=== PATIENT | female | born 1960 ===

== ENCOUNTER 2017-05-07 10:48 | Emergency (ER) | payer MEDICAID ==
[2017-05-07 10:48] VITALS: BMI 38.7
[2017-05-07 11:00] VITALS: RESP 18; TEMP 98.5
[2017-05-07] MEDS ORDERED: Sodium Chloride 0.9% 1,000 ML IV STA (11:22)
[2017-05-07 11:30] LABS: BASO # 0.02 K/mm3 (0.0-2.0); BASO % 0.2 % (0.0-3.0); EOS # 0.5 (0.0-0.7); EOS % 4.7 % (1.5-5.0); GRAN # 6.89 (1.4-6.5); GRAN % 69.6 % (50.0-68.0); HEMATOCRIT 44.8 % (36.0-48.0); LYMPH # 1.9 (1.2-3.4); LYMPH % 19.5 % (22.0-35.0); MEAN CELL VOLUME 94.1 fl (80.0-105.0); MEAN CORPUSCULAR HEMOGLOBIN 30.5 pg (25.0-35.0); MEAN CORPUSCULAR HGB CONC 32.4 g/dl (31.0-37.0); MEAN PLATELET VOLUME 10.9 fl (7.0-11.0); MONO # 0.6 (0.1-0.6); RED CELL DISTRIBUTION WIDTH 13.8 % (11.5-14.5); WHITE BLOOD COUNT 9.9 10^3/ul (4.5-11.0)
--- NOTE | 2017-05-07 11:44 | ED PDOC ---
Arrival/HPI - General Chief Complaint: GI Problem Time Seen by Provider: 05/07/17 11:15 Historian: Patient - History of Present Illness Narrative History of Present Illness (Text): 05/07/17 11:44 A 56 year old female, whose past medical history includes diabetes, hyperlipidemia, GERD and hemorrhoids, presents to the emergency department complaining of mostly non-bloody non-mucoid diarrhea for the past 4 days. Patient also notes accompanied abdominal discomfort, which she describes as a cramping sensation. Patient denied any hematochezia until this morning when she noted bright red blood while wiping her rectum. Patient denies any fever, chills , nausea, vomiting, melena or any other complaints. Patient denies any sick contact, recent travel nor antibiotic use. Time/Duration: Other (4 days) Symptom Course: Unchanged Quality: Other Context: Home Past Medical History - Provider Review Nursing Documentation Reviewed: Yes - Infectious Disease Hx of Infectious Diseases: None - Tetanus Immunization Tetanus Immunization: Unknown - Reproductive Menopause: Yes - Cardiac Hx Cardiac Disorders: Yes Hx Hypertension: Yes - Pulmonary Hx Respiratory Disorders: Yes Hx Asthma: Yes - Neurological Hx Neurological Disorder: No - HEENT Hx HEENT Disorder: No - Renal Hx Renal Disorder: No - Endocrine/Metabolic Hx Endocrine Disorders: Yes Hx Diabetes Mellitus Type 2: Yes - Hematological/Oncological Hx Blood Disorders: No - Integumentary Hx Dermatological Disorder: No - Musculoskeletal/Rheumatological Hx Falls: No - Gastrointestinal Hx Gastrointestinal Disorders: Yes Hx Gastroesophageal Reflux: Yes - Genitourinary/Gynecological Hx Genitourinary Disorders: No - Psychiatric Hx Psychophysiologic Disorder: No Hx Substance Use: No - Surgical History Hx Section: Yes Hx Tubal Ligation: Yes - Anesthesia Hx Anesthesia: Yes Hx Anesthesia Reactions: No Hx Malignant Hyperthermia: No - Suicidal Assessment Feels Threatened In Home Enviroment: No Family/Social History - Physician Review Nursing Documentation Reviewed: Yes Family/Social History: Unknown Family HX Smoking Status: Former Smoker Hx Alcohol Use: Yes Frequency of alcohol use: Socially Hx Substance Use: No Hx Substance Use Treatment: No Allergies/Home Meds Allergies/Adverse Reactions: Allergies aspirin Allergy (Verified 05/07/17 11:00) ITCHING Penicillins Allergy (Verified 05/07/17 11:00) ITCHING Home Medications: Home Meds Medication Instructions Recorded Confirmed Atorvastatin [Lipitor] 40 mg PO DIN 05/08/16 05/07/17 Exenatide Microspheres [Bydureon] 2 mg SC QWK 05/08/16 05/07/17 Glimepiride [Amaryl] 4 mg PO DAILY 05/08/16 05/07/17 MetFORMIN [glucoPHAGE] 1,000 mg PO BID 05/08/16 05/07/17 Metoprolol Tartrate [Lopressor] 25 mg PO DAILY 05/08/16 05/07/17 Nitroglycerin [Nitrostat] 0.4 mg SL Q5MIN PRN 05/08/16 05/07/17 Omeprazole 40 mg PO DAILY 05/08/16 05/07/17 Salmeterol Xinafoate/Fluticaso 1 puff IH DAILY 05/08/16 05/07/17 [Advair Hfa 115/21] Enalapril Maleate [Vasotec] 2.5 mg PO DAILY 05/07/17 05/07/17 Review of Systems - Physician Review All systems were reviewed & negative as marked: Yes - Review of Systems Constitutional: absent: Fevers, Night Sweats Gastrointestinal: Abdominal Pain, Diarrhea, Hematochezia. absent: Nausea, Vomiting, Other (melena) Physical Exam Vital Signs Reviewed: Yes Vital Signs Temp Pulse Resp BP Pulse Ox 05/07/17 14:07 82 18 128/78 96 05/07/17 10:52 98.5 F 86 18 96/61 L 94 L Temperature: Afebrile Blood Pressure: Hypotensive Pulse: Regular Respiratory Rate: Normal Appearance: Positive for: Non-Toxic, Comfortable, Other (Obese female) Pain Distress: None Mental Status: Positive for: Alert and Oriented X 3 - Systems Exam Head: Present: Atraumatic, Normocephalic Pupils: Present: PERRL Extroacular Muscles: Present: EOMI Conjunctiva: Present: Normal Mouth: Present: Moist Mucous Membranes Neck: Present: Normal Range of Motion Respiratory/Chest: Present: Clear to Auscultation, Good Air Exchange. No: Respiratory Distress, Accessory Muscle Use Cardiovascular: Present: Regular Rate and Rhythm, Normal S1, S2. No: Murmurs Abdomen: Present: Distention (slightly distented abdomen), Normal Bowel Sounds. No: Tenderness, Peritoneal Signs Back: Present: Normal Inspection Upper Extremity: Present: Normal Inspection. No: Cyanosis, Edema Lower Extremity: Present: Normal Inspection. No: Edema Neurological: Present: GCS=15, CN II-XII Intact, Speech Normal Skin: Present: Warm, Dry, Normal Color. No: Rashes Psychiatric: Present: Alert, Oriented x 3, Normal Insight, Normal Concentration Medical Decision Making ED Course and Treatment: 05/07/17 11:44 Impression: A 56 year old female with diarrhea and abdominal cramping. Patient notes hemtochezia this morning. Plan: -- Labs -- Urinalysis -- Stool culture -- Pepcid and IV fluids -- Reassess and disposition Progress Notes: - Lab Interpretations Lab Results: 05/07/17 11:20 05/07/17 11:20 Lab Results 05/07/17 11:35: Urine Color Yellow, Urine Appearance Clear, Urine pH 6.0, Ur Specific [place] >= 1.030, Urine Protein 100 H, Urine Glucose (UA) Negative, Urine Ketones Trace H, Urine Blood Negative, Urine Nitrate Negative, Urine Bilirubin Negative, Urine Urobilinogen 1.0 H, Ur Leukocyte Esterase Negative, Urine RBC 0 - 2, Urine WBC 1 - 3, Ur Epithelial Cells 6 - 8, Urine Bacteria Many , Coarse Granular Casts Trace H, Urine Other Fiber, Urine HCG, Qual Negative 05/07/17 11:20: Sodium 140, Potassium 3.8, Chloride 106, Carbon Dioxide 21, Anion Gap 16, BUN 14, Creatinine 0.6 L, Est GFR ( Amer) > 60, Est GFR ( Non-Af Amer) > 60, Random Glucose 199 H, Calcium 9.9, Total Bilirubin 0.9, AST 44 H, ALT 60 H, Alkaline Phosphatase 152 H, Total Protein 8.0, Albumin 4.5, Globulin 3.5, Albumin/Globulin Ratio 1.3, Lipase 83 05/07/17 11:20: PT 11.8, INR 1.07, APTT 30.0 05/07/17 11:20: WBC 9.9 D, RBC 4.76, Hgb 14.5, Hct 44.8, MCV 94.1, MCH 30.5, MCHC 32.4, RDW 13.8, Plt Count 257, MPV 10.9, Gran % 69.6 H, Lymph % (Auto) 19.5 L, Ness % (Auto) 6.0, Eos % (Auto) 4.7, Baso % (Auto) 0.2, Gran # 6.89 H, Lymph # 1.9, Ness # 0.6, Eos # 0.5, Baso # 0.02 I have reviewed the lab results: Yes - Medication Orders Current Medication Orders: Discontinued Medications Famotidine (Pepcid) 20 mg IVP STAT STA Stop: 05/07/17 11:23 Last Admin: 05/07/17 11:41 Dose: 20 mg IVP Administration Document 05/07/17 11:41 SE (Rec: 05/07/17 11:41 SE [id number]) Charges for Administration # of IVP Administrations 1 Sodium Chloride (Sodium Chloride 0.9%) 1,000 mls @ 1,000 mls/hr IV .Q1H STA Stop: 05/07/17 12:21 Last Admin: 05/07/17 11:41 Dose: 1,000 mls/hr eMAR Start Stop Document 05/07/17 11:41 SE (Rec: 05/07/17 11:41 SE [id number]) Intravenous Solution Start Date 05/07/17 Start Time 11:41 - Scribe Statement The provider has reviewed the documentation as recorded by the Loly Cesar Provider Scribe Attestation: All medical record entries made by the Scribe were at my direction and personally dictated by me. I have reviewed the chart and agree that the record accurately reflects my personal performance of the history, physical exam, medical decision making, and the department course for this patient. I have also personally directed, reviewed, and agree with the discharge instructions and disposition. Disposition/Present on Arrival - Present on Arrival Any Indicators Present on Arrival: No History of DVT/PE: No History of Uncontrolled Diabetes: No Urinary Catheter: No History of Decub. Ulcer: No History Surgical Site Infection Following: None - Disposition Have Diagnosis and Disposition been Completed?: Yes Diagnosis: Diarrhea, Dehydration Disposition: HOME/ ROUTINE Disposition Time: 15:18 Patient Plan: Discharge Patient Problems: Current Active Problems Problem Status Onset Dehydration Acute Diarrhea Acute Condition: GOOD Discharge Instructions (ExitCare): Dehydration (DC), Gastroenteritis (GEN), Rotavirus Infection (DC) Additional Instructions: drink plenty of water., Prescriptions: Psyllium Husk [Evac] 340 gm PO BID PRN 7 Days powder PRN Reason: Diarrhea Forms: [employer] (Yi)
[2017-05-07 11:46] LABS: INR 1.07 (0.93-1.08)
[2017-05-07 11:51] LABS: URINE BILIRUBIN NEGATIVE (NEGATIVE); URINE BLOOD NEGATIVE (NEGATIVE); URINE GLUCOSE (UA) NEGATIVE (NEGATIVE); URINE KETONE TRACE mg/dL (NEGATIVE); URINE LEUKOCYTE ESTERASE NEGATIVE Leu/uL (NEGATIVE); URINE PROTEIN 100 mg/dL (<30 mg/dL)
[2017-05-07 11:52] LABS: URINE APPEARANCE CLEAR (CLEAR); URINE COLOR YELLOW (YELLOW)
[2017-05-07 11:58] LABS: URINE BACTERIA MANY (NEG); URINE RBC 0 - 2 /hpf (0-2)
[2017-05-07 12:01] LABS: ALB/GLOB RATIO 1.3 (1.1-1.8); ALKALINE PHOSPHATASE 152 U/L (38-126); ALT/SGPT 60 U/L (7-56); AST/SGOT 44 U/L (14-36); BILIRUBIN,TOTAL 0.9 mg/dL (0.2-1.3); BLOOD UREA NITROGEN 14 mg/dL (7-21); CALCIUM 9.9 mg/dL (8.4-10.5); CARBON DIOXIDE 21 mmol/L (21-33); CHLORIDE 106 mmol/L (98-107); GFR AFRICAN-AMERICAN > 60; GLUCOSE,RANDOM 199 mg/dL (70-110); POTASSIUM 3.8 mmol/L (3.6-5.0); SODIUM 140 mmol/L (132-148)
[2017-05-07 14:08] VITALS: BP 128/78; PULSE 82; O2SAT 96
[2017-05-07 14:25] LABS: LIPASE 83 U/L (23-300)
== END 2017-05-07 15:48 | disposition home or self-care (01) ==
LOC: ED 10:48
DX: E86.0 Dehydration (principal); R19.7 Diarrhea, unspecified; E11.9 Type 2 diabetes mellitus without complications; Z79.84 Long term (current) use of oral hypoglycemic drugs; E78.5 Hyperlipidemia, unspecified; I10 Essential (primary) hypertension; Z87.891 Personal history of nicotine dependence; Z88.0 Allergy status to penicillin
CPT/HCPCS: 80053; 81001; 83690; 84703; 85025; 85610; 85730; 96374; 99284; J7040

== ENCOUNTER 2017-05-19 20:44 | Emergency (ER) | payer MEDICAID ==
[2017-05-19 20:56] VITALS: BP 143/95; PULSE 90; RESP 18; TEMP 98; O2SAT 96
[2017-05-19 20:59] VITALS: BMI 39.2
--- NOTE | 2017-05-19 21:20 | ED PDOC ---
Arrival/HPI - General Chief Complaint: Allergic Reaction Time Seen by Provider: 05/19/17 21:02 Historian: Patient - History of Present Illness Narrative History of Present Illness (Text): 05/19/17 22:39 56 yo F reports acute onset of itchy red rash to her buttock, thighs and face, which started at 6 PM today after eating dinner which was homemade and she has had in the past with no reaction. Reports not taking any medications prior to arrival for her symptoms. Otherwise patient reports (-) throat swelling, (-) tongue / lip swelling, (-) dyspnea, (-) cough, (-) wheezing, (-) abdominal pain , (-) nausea (-) vomiting. There has been no exposure to known allergens. The patient has no history of allergic reactions. PMD Juan Jose Past Medical History - Provider Review Nursing Documentation Reviewed: Yes - Infectious Disease Hx of Infectious Diseases: None - Tetanus Immunization Tetanus Immunization: Unknown - Reproductive Currently : No - Cardiac Hx Cardiac Disorders: Yes Hx Hypertension: Yes - Pulmonary Hx Respiratory Disorders: Yes Hx Asthma: Yes - Neurological Hx Neurological Disorder: No - HEENT Hx HEENT Disorder: No - Renal Hx Renal Disorder: No - Endocrine/Metabolic Hx Endocrine Disorders: Yes Hx Diabetes Mellitus Type 2: Yes - Hematological/Oncological Hx Blood Disorders: No - Integumentary Hx Dermatological Disorder: No - Musculoskeletal/Rheumatological Hx Musculoskeletal Disorders: No Hx Falls: No - Gastrointestinal Hx Gastrointestinal Disorders: Yes Hx Gastroesophageal Reflux: Yes - Genitourinary/Gynecological Hx Genitourinary Disorders: No - Psychiatric Hx Psychophysiologic Disorder: No Hx Substance Use: No - Surgical History Hx Section: Yes Hx Tubal Ligation: Yes - Anesthesia Hx Anesthesia: Yes Hx Anesthesia Reactions: No Hx Malignant Hyperthermia: No - Suicidal Assessment Feels Threatened In Home Enviroment: No Family/Social History - Physician Review Nursing Documentation Reviewed: Yes Family/Social History: Unknown Family HX Smoking Status: Former Smoker Hx Alcohol Use: Yes Frequency of alcohol use: Socially Hx Substance Use: No Hx Substance Use Treatment: No Allergies/Home Meds Allergies/Adverse Reactions: Allergies aspirin Allergy (Verified 05/07/17 11:00) ITCHING Penicillins Allergy (Verified 05/07/17 11:00) ITCHING Home Medications: Home Meds Medication Instructions Recorded Confirmed Atorvastatin [Lipitor] 40 mg PO DIN 05/08/16 05/07/17 Exenatide Microspheres [Bydureon] 2 mg SC QWK 05/08/16 05/07/17 Glimepiride [Amaryl] 4 mg PO DAILY 05/08/16 05/07/17 MetFORMIN [glucoPHAGE] 1,000 mg PO BID 05/08/16 05/07/17 Metoprolol Tartrate [Lopressor] 25 mg PO DAILY 05/08/16 05/07/17 Nitroglycerin [Nitrostat] 0.4 mg SL Q5MIN PRN 05/08/16 05/07/17 Omeprazole 40 mg PO DAILY 05/08/16 05/07/17 Salmeterol Xinafoate/Fluticaso 1 puff IH DAILY 05/08/16 05/07/17 [Advair Hfa 115/21] Enalapril Maleate [Vasotec] 2.5 mg PO DAILY 05/07/17 05/07/17 Review of Systems - Review of Systems Constitutional: absent: Fatigue, Weight Change, Fevers ENT: absent: Sore Throat, Rhinorrhea, Sinus Congestion Respiratory: absent: SOB, Cough, Sputum Cardiovascular: absent: Chest Pain, Palpitations, Edema Musculoskeletal: absent: Arthralgias, Back Pain, Neck Pain Skin: Rash. absent: Pruritis, Skin Lesions Physical Exam - Physical Exam Narrative Physical Exam (Text): 05/19/17 22:42 GENERAL APPEARANCE: Patient is awake, alert, oriented x 3, in no acute distress. SKIN: (+) erythematous urticarial rash to the face, buttock and b/l thighs, (- ) other lesions. Otherwise (-) excoriations, (-) drainage, (-) crusting of lesions is present. HENT: (-) conjunctival injection, (-) chemosis. Oropharynx: clear (-) tongue or lip swelling, (-) tonsillar exudates, (-) erythema. Airway: patent (-) stridor, (-) hoarseness. Mucous membranes moist. Nares: Patent (-) rhinorrhea. NECK: (-) lymphadenopathy, (-) tenderness. CARDIOVASCULAR: Normal rate and rhythm. (-) murmur, (-) gallop. CHEST: (-) rales, (-) wheezing, (-) dyspnea, (-) stridor. Breath sounds equal bilaterally. ABDOMEN: Soft. (-) tenderness, (-) distention, (-) HSM. NEURO: Mental status: Patient is alert, oriented, and with normal strength and tone. Vital Signs Temp Pulse Resp BP Pulse Ox 05/19/17 20:55 98.0 F 90 18 143/95 H 96 Medical Decision Making ED Course and Treatment: 05/19/17 22:40 56 yo F reports acute onset of itchy red rash to her buttock, thighs and face, which started at 6 PM today after eating dinner which was homemade and she has had in the past with no reaction. Plan : - Benadryl 50 mg PO - Prednisone 60 mg PO - Pepcid 40 mg PO On reevaluation, patient is laying in bed comfortably in no acute distress. Breathing is easy and unlabored. Patient has no additional complaints at this time. Reports no shortness of breath or facial swelling. On exam, there is noted improvement of the red rash on patient's face, buttock and thighs. Diagnosis of allergic reaction discussed with the patient. Patient instructed to follow up with primary care physician in 1-2 days without fail. Advised to take medication as prescribed. Return to the emergency room at any time for any new or worsening symptoms. Patient states she fully agrees with and understands discharge instructions. States that she agrees with the plan and disposition. Verbalized and repeated discharge instructions and plan. I have given the patient opportunity to ask any additional questions. - Medication Orders Current Medication Orders: Discontinued Medications Diphenhydramine HCl (Benadryl) 50 mg PO STAT STA Stop: 05/19/17 21:20 Last Admin: 05/19/17 21:27 Dose: 50 mg Famotidine (Pepcid) 40 mg PO STAT STA Stop: 05/19/17 21:20 Last Admin: 05/19/17 21:27 Dose: 40 mg Prednisone (Prednisone Tab) 60 mg PO STAT STA Stop: 05/19/17 21:20 Last Admin: 05/19/17 21:27 Dose: 60 mg - PA / HALF BACKER / Resident Statement / has reviewed & agrees with the documentation as recorded. Disposition/Present on Arrival - Present on Arrival Any Indicators Present on Arrival: No History of DVT/PE: No History of Uncontrolled Diabetes: No Urinary Catheter: No History of Decub. Ulcer: No History Surgical Site Infection Following: None - Disposition Have Diagnosis and Disposition been Completed?: Yes Diagnosis: Allergic reaction Disposition: HOME/ ROUTINE Disposition Time: 22:12 Patient Plan: Discharge Patient Problems: Current Active Problems Problem Status Onset Allergic reaction Acute Condition: STABLE Discharge Instructions (ExitCare): General Allergic Reaction (ED) Print Language: BAHAMIAN Additional Instructions: Thank you for letting us take care of you today. You were treated for allergic reaction. The emergency medical care you received today was directed at your acute symptoms. If you were prescribed any medication, please fill it and take as directed. It may take several days for your symptoms to resolve. Return to the Emergency Department if your symptoms worsen, do not improve, or if you have any other problems. Please contact your doctor in 2 days for re-evaluation and follow up / or call one of the physicians/clinics you have been referred to that are listed on the Patient Visit Information form that is included in your discharge packet. Bring any paperwork you were given at discharge with you along with any medications you are taking to your follow up visit. Our treatment cannot replace ongoing medical care by a primary care provider (PCP) outside of the emergency department. Thank you for allowing the [facility] team to be part of your care today. Prescriptions: Cetirizine HCl [Zyrtec] 10 mg PO DAILY #30 capsule Famotidine [Pepcid] 40 mg PO DAILY #20 tablet predniSONE [predniSONE Tab] 40 mg PO DAILY #8 tab Referrals: Elaine Ingram DO [Primary Care Provider] - Follow up with primary Forms: [employer] ([place]ian), WORK NOTE
== END 2017-05-19 22:23 | disposition home or self-care (01) ==
LOC: ED 20:44
DX: T78.40XA Allergy, unspecified, initial encounter (principal); X58.XXXA Exposure to other specified factors, initial encounter; E11.9 Type 2 diabetes mellitus without complications; I10 Essential (primary) hypertension; Z87.891 Personal history of nicotine dependence; Z79.84 Long term (current) use of oral hypoglycemic drugs; Z88.0 Allergy status to penicillin

== ENCOUNTER 2018-09-16 19:27 | Observation (INO) | payer MEDICAID ==
[2018-09-16 19:32] VITALS: BMI 26.1
[2018-09-16] MEDS ORDERED: Albuterol-Ipratrop 3 mg / 0.5 (3 ml) UD ONE (19:38)
[2018-09-16 20:16] LABS: BASO # 0.02 K/mm3 (0.0-2.0); BASO % 0.3 % (0.0-3.0); EOS # 0.1 (0.0-0.7); EOS % 1.3 % (1.5-5.0); HEMOGLOBIN 13.8 g/dL (12.0-16.0); LYMPH % 43.7 % (22.0-35.0); MEAN CELL VOLUME 94.6 fl (80.0-105.0); MEAN CORPUSCULAR HEMOGLOBIN 30.9 pg (25.0-35.0); MEAN CORPUSCULAR HGB CONC 32.7 g/dl (31.0-37.0); MEAN PLATELET VOLUME 10.7 fl (7.0-11.0); MONO # 0.5 (0.1-0.6); MONO % 7.1 % (1.0-6.0); RBC 4.46 10^6/uL (3.5-6.1); RED CELL DISTRIBUTION WIDTH 12.8 % (11.5-14.5); WHITE BLOOD COUNT 6.8 10^3/uL (4.5-11.0)
[2018-09-16 20:23] LABS: ALB/GLOB RATIO 1.3 (1.1-1.8); ALBUMIN 4.2 g/dL (3.0-4.8); ALT/SGPT 33 U/L (7-56); AST/SGOT 33 U/L (14-36); BLOOD UREA NITROGEN 15 mg/dL (7-21); CALCIUM 9.5 mg/dL (8.4-10.5); GFR NON-AFRICAN AMERICAN > 60; LIPASE 78 U/L (23-300)
[2018-09-16 20:35] LABS: B-TYPE NATRIURETIC PEPTIDE 100 pg/mL (0-450); TROPONIN I < 0.01 ng/mL
[2018-09-16 20:38] LABS: URINE BILIRUBIN NEGATIVE (NEGATIVE); URINE BLOOD NEGATIVE (NEGATIVE); URINE GLUCOSE (UA) NEGATIVE (NEGATIVE); URINE LEUKOCYTE ESTERASE NEGATIVE Leu/uL (NEGATIVE); URINE PROTEIN NEGATIVE mg/dL (<30 mg/dL); URINE UROBILINOGEN 0.2 E.U./dL (<1 E.U./dL)
[2018-09-16 20:40] LABS: URINE APPEARANCE CLEAR (CLEAR); URINE COLOR YELLOW (YELLOW)
--- NOTE | 2018-09-16 22:32 | ED PDOC ---
Arrival/HPI - General Chief Complaint: Shortness Of Breath Time Seen by Provider: 09/16/18 19:44 Historian: Patient - History of Present Illness Narrative History of Present Illness (Text): 09/16/18 22:34 57yr old female with hx of DM/HTN and asthma presents today with chest tightness, upper back pain. pt states symptoms started at 2pm. pt states she took a muscle relaxer at work. pt is c/o SOB. pt denies fever/chills. pt states she has hx of asthma but symptoms are not her normal asthma symptoms. pt is describing a pressure sensation in the chest with a sharp upper back pain with deep inspiration. no abdominal pain. no n/vd//c. no cough. no recent travel. no calf pain. no other complaints. PMD:Dr. Ingram Past Medical History - Provider Review Nursing Documentation Reviewed: Yes - Travel History Have you recently traveled outside [place] w/in the past 3 mons?: No - Infectious Disease Hx of Infectious Diseases: None - Tetanus Immunization Tetanus Immunization: Unknown - Cardiac Hx Cardiac Disorders: Yes Hx Hypertension: Yes - Pulmonary Hx Respiratory Disorders: Yes Hx Asthma: Yes - Neurological Hx Neurological Disorder: No - HEENT Hx HEENT Disorder: No - Renal Hx Renal Disorder: No - Endocrine/Metabolic Hx Endocrine Disorders: Yes Hx Diabetes Mellitus Type 2: Yes - Hematological/Oncological Hx Blood Disorders: No - Integumentary Hx Dermatological Disorder: No - Musculoskeletal/Rheumatological Hx Musculoskeletal Disorders: No Hx Falls: No - Gastrointestinal Hx Gastrointestinal Disorders: Yes Hx Gastroesophageal Reflux: Yes - Genitourinary/Gynecological Hx Genitourinary Disorders: No - Psychiatric Hx Psychophysiologic Disorder: No Hx Substance Use: No - Surgical History Hx Section: Yes Hx Tubal Ligation: Yes - Anesthesia Hx Anesthesia: Yes Hx Anesthesia Reactions: No Hx Malignant Hyperthermia: No - Suicidal Assessment Feels Threatened In Home Enviroment: No Family/Social History - Physician Review Nursing Documentation Reviewed: Yes Family/Social History: Unknown Family HX Smoking Status: hookah Hx Alcohol Use: Yes Frequency of alcohol use: Socially Hx Substance Use: No Hx Substance Use Treatment: No Allergies/Home Meds Allergies/Adverse Reactions: Allergies aspirin Allergy (Verified 09/16/18 19:32) ITCHING Penicillins Allergy (Verified 09/16/18 19:32) ITCHING Home Medications: Home Meds Medication Instructions Recorded Confirmed Atorvastatin [Lipitor] 40 mg PO DIN 05/08/16 05/07/17 Exenatide Microspheres [Bydureon] 2 mg SC QWK 05/08/16 05/07/17 Glimepiride [Amaryl] 4 mg PO DAILY 05/08/16 05/07/17 MetFORMIN [glucoPHAGE] 1,000 mg PO BID 05/08/16 05/07/17 Metoprolol Tartrate [Lopressor] 25 mg PO DAILY 05/08/16 05/07/17 Nitroglycerin [Nitrostat] 0.4 mg SL Q5MIN PRN 05/08/16 05/07/17 Omeprazole 40 mg PO DAILY 05/08/16 05/07/17 Salmeterol Xinafoate/Fluticaso 1 puff IH DAILY 05/08/16 05/07/17 [Advair Hfa 115/21] Enalapril Maleate [Vasotec] 2.5 mg PO DAILY 05/07/17 05/07/17 Nabumetone [Relafen] 1 tab PO DAILY 09/16/18 09/16/18 Review of Systems - Review of Systems Constitutional: absent: Fatigue, Fevers Respiratory: absent: SOB, Cough Cardiovascular: Chest Pain. absent: Palpitations Gastrointestinal: absent: Abdominal Pain, Nausea, Vomiting Genitourinary Female: absent: Dysuria, Frequency, Hematuria Musculoskeletal: Back Pain. absent: Arthralgias, Neck Pain Skin: absent: Rash, Pruritis Neurological: absent: Headache, Dizziness Psychiatric: absent: Anxiety, Depression Physical Exam Vital Signs Reviewed: Yes Vital Signs Temp Pulse Resp BP Pulse Ox 09/16/18 21:08 97.6 F 61 19 119/75 100 09/16/18 19:32 97.6 F 57 L 22 142/81 100 Temperature: Afebrile Blood Pressure: Normal Pulse: Regular Respiratory Rate: Normal Appearance: Positive for: Well-Appearing, Non-Toxic, Comfortable Pain Distress: None Mental Status: Positive for: Alert and Oriented X 3 - Systems Exam Head: Present: Atraumatic Mouth: Present: Moist Mucous Membranes Neck: Present: Normal Range of Motion Respiratory/Chest: Present: Clear to Auscultation, Good Air Exchange. No: Respiratory Distress, Accessory Muscle Use Cardiovascular: Present: Regular Rate and Rhythm, Normal S1, S2. No: Murmurs Abdomen: No: Tenderness, Distention, Rebound, Guarding Upper Extremity: Present: Normal ROM Lower Extremity: Present: Normal Inspection. No: Edema Neurological: Present: GCS=15, Speech Normal Skin: Present: Warm, Dry, Normal Color. No: Rashes Psychiatric: Present: Alert, Oriented x 3 Medical Decision Making ED Course and Treatment: 09/17/18 00:07 Pt with chest pain ; vitals stable cbc; within normal limits cmp; within normal limits trop: Within normal limits D-dimer within normal limits BMP within normal limits ekg; normal sinus rhythm at 62 bpm right bundle branch block no ST elevations QTC 472 cxr: No infiltrate no effusion no cardiomegaly Tylenol given p.o. Patient was not given aspirin as she has an allergy to aspirin. pt reassessment; resting comfortably in the ER case discussed with Dr. Martin; accepts tele obs admission. will Admit observational status to Tele for chest pain r/o acs. impression; chest pain Admit observational status to tele; - Lab Interpretations Lab Results: D-Dimer, Quantitative < 200 ng/mlDDU (0-243) 09/16/18 20:03 Troponin I < 0.01 ng/mL 09/16/18 20:03 NT-Pro-B Natriuret Pep 100 pg/mL (0-450) 09/16/18 20:03 Total Bilirubin 0.5 mg/dL (0.2-1.3) 09/16/18 20:03 AST 33 U/L (14-36) 09/16/18 20:03 ALT 33 U/L (7-56) 09/16/18 20:03 Alkaline Phosphatase 95 U/L (38-126) 09/16/18 20:03 Total Protein 7.4 g/dL (5.8-8.3) 09/16/18 20:03 Albumin 4.2 g/dL (3.0-4.8) 09/16/18 20:03 Globulin 3.2 gm/dL 09/16/18 20:03 Albumin/Globulin Ratio 1.3 (1.1-1.8) 09/16/18 20:03 Lipase 78 U/L (23-300) 09/16/18 20:03 Urine Color Yellow (YELLOW) 09/16/18 20:32 Urine Appearance Clear (CLEAR) 09/16/18 20:32 Urine pH 6.0 (4.7-8.0) 09/16/18 20:32 Ur Specific [place] >= 1.030 (1.005-1.035) 09/16/18 20:32 Urine Protein Negative mg/dL (<30 mg/dL) 09/16/18 20:32 Urine Glucose (UA) Negative mg/dL (NEGATIVE) 09/16/18 20:32 Urine Ketones Trace mg/dL (NEGATIVE) H 09/16/18 20:32 Urine Blood Negative (NEGATIVE) 09/16/18 20:32 Urine Nitrate Negative (NEGATIVE) 09/16/18 20:32 Urine Bilirubin Negative (NEGATIVE) 09/16/18 20:32 Urine Urobilinogen 0.2 E.U./dL (<1 E.U./dL) 09/16/18 20:32 Ur Leukocyte Esterase Negative Merari/uL (NEGATIVE) 09/16/18 20:32 - RAD Interpretation Radiology Orders: 09/16/18 19:55 CHEST PORTABLE [RAD] Stat Disposition/Present on Arrival - Present on Arrival Any Indicators Present on Arrival: No History of DVT/PE: No History of Uncontrolled Diabetes: No Urinary Catheter: No History of Decub. Ulcer: No History Surgical Site Infection Following: None - Disposition Have Diagnosis and Disposition been Completed?: Yes Diagnosis: Chest pain Disposition: HOSPITALIZED Disposition Time: 22:49 Patient Plan: Observation Patient Problems: Current Active Problems Problem Status Onset Chest pain Acute Condition: FAIR
--- NOTE | 2018-09-16 22:47 | CP.PCM.HP ---
<SanketRegino - Last Filed: 09/16/18 23:38> History of Present Illness - History of Present Illness History of Present Illness: PGY-1 History and Physical [address] Arriola Patient is a 57 year old female with past medical history of HTN, HLD, asthma presenting to ED for acute onset chest pain that began earlier this afternoon at 2PM. Patient states she was in her kitchen making coffee when it occurred suddenly. She described it as a pressure like sensation localized to the midsternal area with no radiation across the chest, down either extremity, or up the neck. She also endorses associated L upper back pain. She was taken to the ED by her and states the pain resolved after receiving tylenol and a duoneb treatment in the ED. She has never had pain like this before. No fevers/chills, dizziness, changes in vision, palpitations, sob, cough, abdominal pain, n/v/d/c, dysuria, or changes in stool. 12 pt ROS reviewed and otherwise negative. PMHx: HTN, HLD, asthma PSHx: tubal ligation, (1995), bariatric surgery Allergies: ASA, PCN--hives Home Meds: reviewed Social Hx: hx tobacco use--~1/2 ppd from 14 years old to age 42s, smokes hookah occasionally; social drinker, denies illicit drug use Family Hx: Brother--"open heart surgery" PMD: Dr. Ingram Present on Admission - Present on Admission Any Indicators Present on Admission: No Review of Systems - Review of Systems All systems: reviewed and no additional remarkable complaints except Review of Systems: as per HPI Past Patient History - Infectious Disease Hx of Infectious Diseases: None - Tetanus Immunizations Tetanus Immunization: Unknown - Past Social History Smoking Status: hookah - CARDIAC Hx Cardiac Disorders: Yes Hx Hypertension: Yes - PULMONARY Hx Respiratory Disorders: Yes Hx Asthma: Yes - NEUROLOGICAL Hx Neurological Disorder: No - HEENT Hx HEENT Problems: No - RENAL Hx Chronic Kidney Disease: No - ENDOCRINE/METABOLIC Hx Endocrine Disorders: Yes Hx Diabetes Mellitus Type 2: Yes - HEMATOLOGICAL/ONCOLOGICAL Hx Blood Disorders: No - INTEGUMENTARY Hx Dermatological Problems: No - MUSCULOSKELETAL/RHEUMATOLOGICAL Hx Musculoskeletal Disorders: No Hx Falls: No - GASTROINTESTINAL Hx Gastrointestinal Disorders: Yes Hx Gastroesophageal Reflux: Yes - GENITOURINARY/GYNECOLOGICAL Hx Genitourinary Disorders: No - PSYCHIATRIC Hx Psychophysiologic Disorder: No Hx Substance Use: No - SURGICAL HISTORY Hx Section: Yes Hx Tubal Ligation: Yes - ANESTHESIA Hx Anesthesia: Yes Hx Anesthesia Reactions: No Hx Malignant Hyperthermia: No Meds Allergies/Adverse Reactions: Allergies Allergy/AdvReac Type Severity Reaction Status Date / Time aspirin Allergy ITCHING Verified 09/16/18 19:32 Penicillins Allergy ITCHING Verified 09/16/18 19:32 Physical Exam - Constitutional Appears: Non-toxic, No Acute Distress - Head Exam Head Exam: ATRAUMATIC, NORMAL INSPECTION, NORMOCEPHALIC - Eye Exam Eye Exam: EOMI, Normal appearance, PERRL Pupil Exam: NORMAL ACCOMODATION - ENT Exam ENT Exam: Mucous Membranes Moist, Normal Exam - Neck Exam Neck exam: Positive for: Full Rom, Normal Inspection. Negative for: Tenderness - Respiratory Exam Respiratory Exam: Clear to Auscultation Bilateral, NORMAL BREATHING PATTERN. absent: Accessory Muscle Use, Chest Wall Tenderness, Rales, Rhonchi, Wheezes, Respiratory Distress, Stridor - Cardiovascular Exam Cardiovascular Exam: REGULAR RHYTHM, +S1, +S2 - GI/Abdominal Exam GI & Abdominal Exam: Normal Bowel Sounds, Soft. absent: Distended, Firm, Guarding, Rebound, Rigid, Tenderness - Extremities Exam Extremities exam: Positive for: normal capillary refill, normal inspection, pedal pulses present. Negative for: calf tenderness, pedal edema - Back Exam Back exam: NORMAL INSPECTION. absent: paraspinal tenderness, vertebral tenderness - Neurological Exam Neurological exam: Alert, CN II-XII Intact, Oriented x3 - Skin Skin Exam: Dry, Intact, Normal Color, Warm Results - Vital Signs Recent Vital Signs: Last Vital Signs Temp 97.6 F 09/16/18 21:08 Pulse 61 09/16/18 21:08 Resp 19 09/16/18 21:08 BP 119/75 09/16/18 21:08 Pulse Ox 100 09/16/18 21:08 - Labs Result Diagrams: 09/16/18 20:03 09/16/18 20:03 Labs: Laboratory Results - last 24 hr 09/16/18 09/16/18 09/16/18 20:03 20:03 20:03 WBC 6.8 RBC 4.46 Hgb 13.8 Hct 42.2 MCV 94.6 MCH 30.9 MCHC 32.7 RDW 12.8 Plt Count 207 MPV 10.7 Neut % (Auto) 47.6 L Lymph % (Auto) 43.7 H Tucker % (Auto) 7.1 H Eos % (Auto) 1.3 L Baso % (Auto) 0.3 Lymph # (Auto) 3.0 Tucker # (Auto) 0.5 Eos # (Auto) 0.1 Baso # (Auto) 0.02 Absolute Neuts (auto) 3.24 D-Dimer, Quantitative < 200 Sodium 143 Potassium 3.8 Chloride 108 H Carbon Dioxide 27 Anion Gap 12 BUN 15 Creatinine 0.6 L Est GFR ( Amer) > 60 Est GFR (Non-Af Amer) > 60 Random Glucose 100 Calcium 9.5 Total Bilirubin 0.5 AST 33 ALT 33 Alkaline Phosphatase 95 Lactate Dehydrogenase 362 Total Creatine Kinase 55 Troponin I < 0.01 NT-Pro-B Natriuret Pep 100 Total Protein 7.4 Albumin 4.2 Globulin 3.2 Albumin/Globulin Ratio 1.3 Lipase 78 Urine Color Urine Appearance Urine pH Ur Specific [place] Urine Protein Urine Glucose (UA) Urine Ketones Urine Blood Urine Nitrate Urine Bilirubin Urine Urobilinogen Ur Leukocyte Esterase 09/16/18 20:32 WBC RBC Hgb Hct MCV MCH MCHC RDW Plt Count MPV Neut % (Auto) Lymph % (Auto) Tucker % (Auto) Eos % (Auto) Baso % (Auto) Lymph # (Auto) Tucker # (Auto) Eos # (Auto) Baso # (Auto) Absolute Neuts (auto) D-Dimer, Quantitative Sodium Potassium Chloride Carbon Dioxide Anion Gap BUN Creatinine Est GFR ( Amer) Est GFR (Non-Af Amer) Random Glucose Calcium Total Bilirubin AST ALT Alkaline Phosphatase Lactate Dehydrogenase Total Creatine Kinase Troponin I NT-Pro-B Natriuret Pep Total Protein Albumin Globulin Albumin/Globulin Ratio Lipase Urine Color Yellow Urine Appearance Clear Urine pH 6.0 Ur Specific [place] >= 1.030 Urine Protein Negative Urine Glucose (UA) Negative Urine Ketones Trace H Urine Blood Negative Urine Nitrate Negative Urine Bilirubin Negative Urine Urobilinogen 0.2 Ur Leukocyte Esterase Negative Assessment & Plan - Assessment and Plan (Free Text) Assessment: 57 year old female with pmhx of HTN, HLD, asthma presenting to ED with acute onset atypical chest pain. Plan: Atypical chest pain, r/o ACS -CXR: no acute findings -EKG: NSR, incomplete RBBB -ECHO (09/2014): EF 53%, normal chamber size, normal LV systolic function, borderline concentric LVH -stress test (12/2014): no acute findings -trop x 1 negative -f/u serial trops -repeat EKG -lipid panel -TSH/free T4 -f/u ECHO -Cardiology (Dr. Crowell) consulted -toradol 15 mg IVP q6 prn Hx of HTN -currently normotensive, continue to monitor -home lopressor held Hx of HLD -f/u lipid panel -resume lipitor 40 mg PO HS Hx of asthma -no wheezing on PE -ventolin 2 puff RQ6 prn DM -home meds held -f/u A1C -ISS medium dose -accuchecks achs -hypoglycemic protocol PPx, Diet, Disposition -DVT ppx: scds -GI ppx: pepcid 20 mg PO BID -Diet: HHD Case discussed with Dr. Flako Coles DO, PGY-1 <Seb Arriola - Last Filed: 09/17/18 00:56> Results - Vital Signs Recent Vital Signs: Last Vital Signs Temp 97.6 F 09/16/18 21:08 Pulse 62 09/17/18 00:10 Resp 18 09/17/18 00:10 BP 131/88 09/17/18 00:10 Pulse Ox 98 09/17/18 00:10 - Labs Result Diagrams: 09/16/18 20:03 09/16/18 20:03 Labs: Laboratory Results - last 24 hr 09/16/18 09/16/18 09/16/18 20:03 20:03 20:03 WBC 6.8 RBC 4.46 Hgb 13.8 Hct 42.2 MCV 94.6 MCH 30.9 MCHC 32.7 RDW 12.8 Plt Count 207 MPV 10.7 Neut % (Auto) 47.6 L Lymph % (Auto) 43.7 H Tucker % (Auto) 7.1 H Eos % (Auto) 1.3 L Baso % (Auto) 0.3 Lymph # (Auto) 3.0 Tucker # (Auto) 0.5 Eos # (Auto) 0.1 Baso # (Auto) 0.02 Absolute Neuts (auto) 3.24 D-Dimer, Quantitative < 200 Sodium 143 Potassium 3.8 Chloride 108 H Carbon Dioxide 27 Anion Gap 12 BUN 15 Creatinine 0.6 L Est GFR ( Amer) > 60 Est GFR (Non-Af Amer) > 60 Random Glucose 100 Calcium 9.5 Total Bilirubin 0.5 AST 33 ALT 33 Alkaline Phosphatase 95 Lactate Dehydrogenase 362 Total Creatine Kinase 55 Troponin I < 0.01 NT-Pro-B Natriuret Pep 100 Total Protein 7.4 Albumin 4.2 Globulin 3.2 Albumin/Globulin Ratio 1.3 Lipase 78 Urine Color Urine Appearance Urine pH Ur Specific [place] Urine Protein Urine Glucose (UA) Urine Ketones Urine Blood Urine Nitrate Urine Bilirubin Urine Urobilinogen Ur Leukocyte Esterase 09/16/18 20:32 WBC RBC Hgb Hct MCV MCH MCHC RDW Plt Count MPV Neut % (Auto) Lymph % (Auto) Tucker % (Auto) Eos % (Auto) Baso % (Auto) Lymph # (Auto) Tucker # (Auto) Eos # (Auto) Baso # (Auto) Absolute Neuts (auto) D-Dimer, Quantitative Sodium Potassium Chloride Carbon Dioxide Anion Gap BUN Creatinine Est GFR ( Amer) Est GFR (Non-Af Amer) Random Glucose Calcium Total Bilirubin AST ALT Alkaline Phosphatase Lactate Dehydrogenase Total Creatine Kinase Troponin I NT-Pro-B Natriuret Pep Total Protein Albumin Globulin Albumin/Globulin Ratio Lipase Urine Color Yellow Urine Appearance Clear Urine pH 6.0 Ur Specific [place] >= 1.030 Urine Protein Negative Urine Glucose (UA) Negative Urine Ketones Trace H Urine Blood Negative Urine Nitrate Negative Urine Bilirubin Negative Urine Urobilinogen 0.2 Ur Leukocyte Esterase Negative Attending/Attestation - Attestation I have personally seen and examined this patient.: Yes I have fully participated in the care of the patient.: Yes I have reviewed all pertinent clinical information: Yes Notes (Text): 09/17/18 00:55 Patient was seen when she was in cubicle # 7. Agree with history, physical examination, assessment and plan.
[2018-09-16] MEDS ORDERED: Dextrose 50% SYRINGE Inj (50 ml) IV PRN (23:16)
[2018-09-16] MEDS ORDERED: Albuterol 0.5% Inhal Sol (2.5 mg/0.5 ml) UD IH PRN (23:26)
[2018-09-17 00:21] VITALS: O2SAT 98
[2018-09-17 06:52] LABS: FREE T4 0.93 ng/dL (0.78-2.19)
[2018-09-17 07:38] LABS: HDL CHOLESTEROL 41 mg/dL (29-60)
[2018-09-17 07:49] LABS: LDL CHOLESTEROL 53 mg/dL (0-129)
[2018-09-17] MEDS: Insulin Regular 1 UNITS/0.01 ML ML SC SCH ×2 (08:30→12:21)
--- NOTE | 2018-09-17 08:35 | RAD ---
Date of service: 09/16/2018 HISTORY: sob COMPARISON: Portable chest 12/31/2014. TECHNIQUE: 1 view obtained. FINDINGS: LUNGS: No active pulmonary disease. PLEURA: No significant pleural effusion identified, no pneumothorax apparent. CARDIOVASCULAR: No aortic atherosclerotic calcification present. Normal cardiac size. No pulmonary vascular congestion. OSSEOUS STRUCTURES: No significant abnormalities. VISUALIZED UPPER ABDOMEN: Normal. OTHER FINDINGS: None. IMPRESSION: No interval acute cardiopulmonary disease appreciated.
--- NOTE | 2018-09-17 09:17 | CON ---
DATE OF CONSULTATION: 09/17/2018 REQUESTING PHYSICIAN: Dr. Earl. REASON FOR CONSULTATION: Chest pain. HISTORY: This is a 57-year-old woman, known to us from previous admissions with a reported history of coronary artery disease as well as diabetes, hypertension, hyperlipidemia, and family history of premature heart disease, admitted with chest discomfort. She described this as a heaviness in the chest as well as a sharp pain in her back. Pain in her back was more severe and worsening with change in position or deep inspiration. She was brought to the emergency room and workup thus far has been negative. Cardiac enzymes were negative. She was admitted several years ago with chest discomfort and underwent a stress test, which was reportedly unremarkable. Cardiac risk factors include hypertension, hyperlipidemia, and remote tobacco abuse as well as a family history of premature heart disease. PAST MEDICAL HISTORY: Her past history is notable for prior section, gastric sleeve surgery, and tubal ligation as well as a history of asthma. ALLERGIES: SHE REPORTEDLY HAD A REACTION WITH ASPIRIN AND PENICILLIN IN THE PAST. SOCIAL HISTORY: She smoked for many years, but quit a number of years ago. She also smokes occasionally. She drinks rarely. FAMILY HISTORY: One brother had bypass surgery at a young age. REVIEW OF SYSTEMS: Ten-point review of systems is otherwise unremarkable. PHYSICAL EXAMINATION: GENERAL: She is a middle-aged woman, who appears comfortable at the present time. VITAL SIGNS: Her blood pressure is 122/74 with a pulse of 60 and sinus, respirations are 14. She is afebrile. HEENT: Normocephalic, atraumatic. NECK: Supple. No JVD noted. CHEST: A few scattered rhonchi heard. HEART: PMI in normal position. No pathological murmurs or gallops noted. ABDOMEN: Soft, nontender with normoactive bowel sounds. EXTREMITIES: No clubbing, cyanosis, or edema. SKIN: Warm and dry. PSYCHIATRIC: Normal mood and affect. NEUROLOGIC: Alert and oriented x3. No gross motor or sensory deficits notable. DIAGNOSTIC DATA: Three sets of cardiac enzymes are negative. Potassium 3.8, BUN and creatinine are 15 and 0.6. White count of 6.8, hemoglobin and hematocrit are 13.8 and 42.2 with a platelet count of 207,000. Electrocardiogram reveals sinus rhythm with an incomplete right bundle branch block and nonspecific ST-T abnormalities.Chest x-ray reportedly shows normal cardiac silhouette with clear lung rider. D-dimer was negative. Cholesterol is 108, HDL 41, LDL 53, triglycerides 110. TSH 2.02. IMPRESSION: 1. Chest discomfort, somewhat suspicious for angina given her multiple cardiac risk factors. Further evaluation is advised. Back pain sounds more likely musculoskeletal in nature. 2. Multiple risk factors as noted above. RECOMMENDATIONS: From a cardiac standpoint, discharge home at this time and an outpatient stress test would be reasonable. If she has recurrent symptoms, she was instructed to return to the emergency room. Aggressive risk factor control is advised. Jordy Jay MD MTDD
--- NOTE | 2018-09-17 09:39 | CARD ---
APPROVED REPORT Date of service: 09/16/2018 EKG Measurement Heart [id number] [place] [id number] <Conclusion> Normal sinus rhythm Right bundle branch block Abnormal ECG
--- NOTE | 2018-09-17 09:43 | CARD ---
APPROVED REPORT Date of service: 09/16/2018 EKG Measurement Heart [id number] <Conclusion> Normal sinus rhythm Right bundle branch block Abnormal ECG
--- NOTE | 2018-09-17 11:19 | CARD ---
APPROVED REPORT Date of service: 09/17/2018 EXAM: Two-dimensional and M-mode echocardiogram with Doppler and color Doppler. INDICATION Chest Pain 2D DIMENSIONS Left Atrium (2D)4.2 (1.6-4.0cm)IVSd1.1 (0.7-1.1cm) LVDd4.8 (3.9-5.9cm)PWd1.2 (0.7-1.1cm) LVDs3.5 (2.5-4.0cm)FS (%) 27.7 % LVEF (%)53.9 (>50%) M-Mode DIMENSIONS Aortic Root3.20 (2.2-3.7cm)Aortic Cusp Exc.2.00 (1.5-2.0cm) Aortic Valve AoV Peak Nvnuonvh601.0cm/Yee Peak GR.10mmHgAI P 1/2 [id number] Mitral Valve MV E Cmzcdpbz27.9cm/sMV A Wtrdsnae31.8cm/sE/A ratio1.5 TDI Lateral E' Peak V13.90cm/sMedial E' Peak V8.97cm/sE/Lateral E'6.2 E/Medial E'9.6 Pulmonary Valve PV Peak Kiclxbrx66.3cm/sPV Peak Grad.1mmHg Tricuspid Valve TR Peak [id number]/sRAP [id number] Peak Gr.12mmHg [id number] LEFT VENTRICLE The left ventricle is normal size. There is borderline concentric left ventricular hypertrophy. The left ventricular function is normal. The left ventricular ejection fraction is within the normal range. There is normal LV segmental wall motion. RIGHT VENTRICLE The right ventricle is normal size. The right ventricular systolic function is normal. ATRIA The left atrium is mildly dilated. The right atrium size is normal. The interatrial septum is intact with no evidence for an atrial septal defect. AORTIC VALVE The aortic valve is trileaflet. There is mild aortic regurgitation. There is no aortic valvular stenosis. MITRAL VALVE The mitral valve is moderately thickened. Mitral regurgitation is mild. TRICUSPID VALVE The tricuspid valve is normal in structure. There is trace tricuspid regurgitation. PULMONIC VALVE The pulmonary valve is normal in structure. GREAT VESSELS The aortic root is normal in size. The IVC is normal in size and collapses >50% with inspiration. PERICARDIAL EFFUSION There is no pleural effusion. There is no pericardial effusion. <Conclusion> Mildly dilated LA. Normal LV size and systolic function. Borderline concentric LVH. Thickened mitral valve leaflets. Mild mitral regurgitation. Mild aortic insufficiency.
[2018-09-17 12:08] VITALS: BP 112/70; PULSE 65; RESP 20; TEMP 98.4
--- NOTE | 2018-09-17 12:56 | CP.PCM.DIS ---
<Dayami Gambino - Last Filed: 09/17/18 14:22> Provider - Provider Date of Admission: 09/16/18 22:44 Attending physician: Mario Earl MD Consults: 09/16/18 23:19 Cardiology Consult Routine Comment: Consulting Provider: Jordy Jay Consulting Physician: Jordy Jay Reason for Consult: CHEST PAIN, R/O ACS Time Spent in preparation of Discharge (in minutes): 45 Hospital Course - Lab Results Lab Results: Most Recent Lab Values WBC 6.8 10^3/uL (4.5-11.0) 09/16/18 20:03 RBC 4.46 10^6/uL (3.5-6.1) 09/16/18 20:03 Hgb 13.8 g/dL (12.0-16.0) 09/16/18 20:03 Hct 42.2 % (36.0-48.0) 09/16/18 20:03 MCV 94.6 fl (80.0-105.0) 09/16/18 20:03 MCH 30.9 pg (25.0-35.0) 09/16/18 20:03 MCHC 32.7 g/dl (31.0-37.0) 09/16/18 20:03 RDW 12.8 % (11.5-14.5) 09/16/18 20:03 Plt Count 207 10^3/uL (120.0-450.0) 09/16/18 20:03 MPV 10.7 fl (7.0-11.0) 09/16/18 20:03 Neut % (Auto) 47.6 % (50.0-68.0) L 09/16/18 20:03 Lymph % (Auto) 43.7 % (22.0-35.0) H 09/16/18 20:03 [place] % (Auto) 7.1 % (1.0-6.0) H 09/16/18 20:03 Eos % (Auto) 1.3 % (1.5-5.0) L 09/16/18 20:03 Baso % (Auto) 0.3 % (0.0-3.0) 09/16/18 20:03 Lymph # (Auto) 3.0 (1.2-3.4) 09/16/18 20:03 [place] # (Auto) 0.5 (0.1-0.6) 09/16/18 20:03 Eos # (Auto) 0.1 (0.0-0.7) 09/16/18 20:03 Baso # (Auto) 0.02 K/mm3 (0.0-2.0) 09/16/18 20:03 Absolute Neuts (auto) 3.24 (1.4-6.5) 09/16/18 20:03 D-Dimer, Quantitative < 200 ng/mlDDU (0-243) 09/16/18 20:03 Sodium 143 mmol/L (132-148) 09/16/18 20:03 Potassium 3.8 mmol/L (3.6-5.0) 09/16/18 20:03 Chloride 108 mmol/L (98-107) H 09/16/18 20:03 Carbon Dioxide 27 mmol/L (21-33) 09/16/18 20:03 Anion Gap 12 (10-20) 09/16/18 20:03 BUN 15 mg/dL (7-21) 09/16/18 20:03 Creatinine 0.6 mg/dl (0.7-1.2) L 09/16/18 20:03 Est GFR ( Amer) > 60 09/16/18 20:03 Est GFR (Non-Af Amer) > 60 09/16/18 20:03 POC Glucose (mg/dL) 172 mg/dL (65-110) H 09/17/18 11:24 Random Glucose 100 mg/dL (70-110) 09/16/18 20:03 Hemoglobin A1c 5.8 % (4.2-6.5) 09/17/18 05:30 Calcium 9.5 mg/dL (8.4-10.5) 09/16/18 20:03 Total Bilirubin 0.5 mg/dL (0.2-1.3) 09/16/18 20:03 AST 33 U/L (14-36) 09/16/18 20:03 ALT 33 U/L (7-56) 09/16/18 20:03 Alkaline Phosphatase 95 U/L (38-126) 09/16/18 20:03 Lactate Dehydrogenase 362 U/L (333-699) 09/16/18 20:03 Total Creatine Kinase 55 U/L (35-230) 09/16/18 20:03 Troponin I < 0.01 ng/mL 09/17/18 05:30 NT-Pro-B Natriuret Pep 100 pg/mL (0-450) 09/16/18 20:03 Total Protein 7.4 g/dL (5.8-8.3) 09/16/18 20:03 Albumin 4.2 g/dL (3.0-4.8) 09/16/18 20:03 Globulin 3.2 gm/dL 09/16/18 20:03 Albumin/Globulin Ratio 1.3 (1.1-1.8) 09/16/18 20:03 Triglycerides 110 mg/dL (35-160) 09/17/18 05:30 Cholesterol 108 mg/dL (130-200) L 09/17/18 05:30 LDL Cholesterol Direct 53 mg/dL (0-129) 09/17/18 05:30 HDL Cholesterol 41 mg/dL (29-60) 09/17/18 05:30 Lipase 78 U/L (23-300) 09/16/18 20:03 Free T4 0.93 ng/dL (0.78-2.19) 09/17/18 05:30 TSH 3rd Generation 2.02 mIU/mL (0.46-4.68) 09/17/18 05:30 Urine Color Yellow (YELLOW) 09/16/18 20:32 Urine Appearance Clear (CLEAR) 09/16/18 20:32 Urine pH 6.0 (4.7-8.0) 09/16/18 20:32 Ur Specific Eugene >= 1.030 (1.005-1.035) 09/16/18 20:32 Urine Protein Negative mg/dL (<30 mg/dL) 09/16/18 20:32 Urine Glucose (UA) Negative mg/dL (NEGATIVE) 09/16/18 20:32 Urine Ketones Trace mg/dL (NEGATIVE) H 09/16/18 20:32 Urine Blood Negative (NEGATIVE) 09/16/18 20:32 Urine Nitrate Negative (NEGATIVE) 09/16/18 20:32 Urine Bilirubin Negative (NEGATIVE) 09/16/18 20:32 Urine Urobilinogen 0.2 E.U./dL (<1 E.U./dL) 09/16/18 20:32 Ur Leukocyte Esterase Negative Merari/uL (NEGATIVE) 09/16/18 20:32 - Hospital Course Hospital Course: 57 year old female with PMH of HTN, HLD, asthma presented for acute onset chest pain that began day of admission while she was in her kitchen making coffee. She described it as a pressure like sensation localized to the midsternal area with no radiation with associated back pain. Pain resolved after receiving Tylenol and a duoneb treatment in the ED. She denied fevers/chills, dizziness, changes in vision, palpitations, sob, cough, abdominal pain, n/v/d, dysuria, or changes in stool at the time of admission. CXR showed no acute findings. EKG was NSR, incomplete RBBB. Troponins were negative tomes 3. Lipid panel was within normal limits. TSH/free T4 were also within normal limits. ECHO showed EF of 53%, moderate mitral valve thickening, mild mitral regurgiation. borderline concentric LVH. Cardiology was consulted recommended outpatient stress test. Patient is to follow up with cardiology for out patient stress test. Patient was advised to continue home medications and follow up with PMD within 1 week. Discharge Exam - Head Exam Head Exam: ATRAUMATIC, NORMAL INSPECTION, NORMOCEPHALIC - Eye Exam Eye Exam: EOMI, Normal appearance - Neck Exam Neck exam: Full Rom - Respiratory Exam Respiratory Exam: Clear to PA & Lateral, NORMAL BREATHING PATTERN, UNREMARKABLE. absent: Accessory Muscle Use, Rales, Rhonchi, Wheezes, Respiratory Distress, Stridor - Cardiovascular Exam Cardiovascular Exam: REGULAR RHYTHM, RRR, +S1, +S2. absent: Bradycardia, Tachycardia - GI/Abdominal Exam GI & Abdominal Exam: Normal Bowel Sounds, Soft, Unremarkable. absent: Distended, Firm, Tenderness - Extremities Exam Extremities exam: normal inspection - Neurological Exam Neurological exam: Alert, Oriented x3 - Psychiatric Exam Psychiatric exam: Normal Affect, Normal Mood - Skin Skin Exam: Dry, Intact, Normal Color, Warm Discharge Plan - Follow Up Plan Condition: FAIR Disposition: HOME/ ROUTINE Instructions: Chest Pain That Is Not Caused by the Heart (DC), Heart Disease in Women (DC), Chest Pain (ED) Additional Instructions: Stacy follow up with Dr. Ingram within 1 week Follow up with [employer] within 1 week for outpatient stress test Please return to nearest emergency room if new or worsening symptoms. Referrals: Jordy Jay MD [Staff Provider] - Elaine Ingram DO [Doctor Osteopathy] - <Mario Earl - Last Filed: 09/17/18 14:36> Provider - Provider Date of Admission: 09/16/18 22:44 Attending physician: Mario Earl MD Consults: 09/16/18 23:19 Cardiology Consult Routine Comment: Consulting Provider: Jordy Jay Consulting Physician: Jordy Jay Reason for Consult: CHEST PAIN, R/O ACS Hospital Course - Lab Results Lab Results: Most Recent Lab Values WBC 6.8 10^3/uL (4.5-11.0) 09/16/18 20:03 RBC 4.46 10^6/uL (3.5-6.1) 09/16/18 20:03 Hgb 13.8 g/dL (12.0-16.0) 09/16/18 20:03 Hct 42.2 % (36.0-48.0) 09/16/18 20:03 MCV 94.6 fl (80.0-105.0) 09/16/18 20:03 MCH 30.9 pg (25.0-35.0) 09/16/18 20:03 MCHC 32.7 g/dl (31.0-37.0) 09/16/18 20:03 RDW 12.8 % (11.5-14.5) 09/16/18 20:03 Plt Count 207 10^3/uL (120.0-450.0) 09/16/18 20:03 MPV 10.7 fl (7.0-11.0) 09/16/18 20:03 Neut % (Auto) 47.6 % (50.0-68.0) L 09/16/18 20:03 Lymph % (Auto) 43.7 % (22.0-35.0) H 09/16/18 20:03 [place] % (Auto) 7.1 % (1.0-6.0) H 09/16/18 20:03 Eos % (Auto) 1.3 % (1.5-5.0) L 09/16/18 20:03 Baso % (Auto) 0.3 % (0.0-3.0) 09/16/18 20:03 Lymph # (Auto) 3.0 (1.2-3.4) 09/16/18 20:03 [place] # (Auto) 0.5 (0.1-0.6) 09/16/18 20:03 Eos # (Auto) 0.1 (0.0-0.7) 09/16/18 20:03 Baso # (Auto) 0.02 K/mm3 (0.0-2.0) 09/16/18 20:03 Absolute Neuts (auto) 3.24 (1.4-6.5) 09/16/18 20:03 D-Dimer, Quantitative < 200 ng/mlDDU (0-243) 09/16/18 20:03 Sodium 143 mmol/L (132-148) 09/16/18 20:03 Potassium 3.8 mmol/L (3.6-5.0) 09/16/18 20:03 Chloride 108 mmol/L (98-107) H 09/16/18 20:03 Carbon Dioxide 27 mmol/L (21-33) 09/16/18 20:03 Anion Gap 12 (10-20) 09/16/18 20:03 BUN 15 mg/dL (7-21) 09/16/18 20:03 Creatinine 0.6 mg/dl (0.7-1.2) L 09/16/18 20:03 Est GFR ( Amer) > 60 09/16/18 20:03 Est GFR (Non-Af Amer) > 60 09/16/18 20:03 POC Glucose (mg/dL) 172 mg/dL (65-110) H 09/17/18 11:24 Random Glucose 100 mg/dL (70-110) 09/16/18 20:03 Hemoglobin A1c 5.8 % (4.2-6.5) 09/17/18 05:30 Calcium 9.5 mg/dL (8.4-10.5) 09/16/18 20:03 Total Bilirubin 0.5 mg/dL (0.2-1.3) 09/16/18 20:03 AST 33 U/L (14-36) 09/16/18 20:03 ALT 33 U/L (7-56) 09/16/18 20:03 Alkaline Phosphatase 95 U/L (38-126) 09/16/18 20:03 Lactate Dehydrogenase 362 U/L (333-699) 09/16/18 20:03 Total Creatine Kinase 55 U/L (35-230) 09/16/18 20:03 Troponin I < 0.01 ng/mL 09/17/18 05:30 NT-Pro-B Natriuret Pep 100 pg/mL (0-450) 09/16/18 20:03 Total Protein 7.4 g/dL (5.8-8.3) 09/16/18 20:03 Albumin 4.2 g/dL (3.0-4.8) 09/16/18 20:03 Globulin 3.2 gm/dL 09/16/18 20:03 Albumin/Globulin Ratio 1.3 (1.1-1.8) 09/16/18 20:03 Triglycerides 110 mg/dL (35-160) 09/17/18 05:30 Cholesterol 108 mg/dL (130-200) L 09/17/18 05:30 LDL Cholesterol Direct 53 mg/dL (0-129) 09/17/18 05:30 HDL Cholesterol 41 mg/dL (29-60) 09/17/18 05:30 Lipase 78 U/L (23-300) 09/16/18 20:03 Free T4 0.93 ng/dL (0.78-2.19) 09/17/18 05:30 TSH 3rd Generation 2.02 mIU/mL (0.46-4.68) 09/17/18 05:30 Urine Color Yellow (YELLOW) 09/16/18 20:32 Urine Appearance Clear (CLEAR) 09/16/18 20:32 Urine pH 6.0 (4.7-8.0) 09/16/18 20:32 Ur Specific Eugene >= 1.030 (1.005-1.035) 09/16/18 20:32 Urine Protein Negative mg/dL (<30 mg/dL) 09/16/18 20:32 Urine Glucose (UA) Negative mg/dL (NEGATIVE) 09/16/18 20:32 Urine Ketones Trace mg/dL (NEGATIVE) H 09/16/18 20:32 Urine Blood Negative (NEGATIVE) 09/16/18 20:32 Urine Nitrate Negative (NEGATIVE) 09/16/18 20:32 Urine Bilirubin Negative (NEGATIVE) 04/10/19 20:32 Urine Urobilinogen 0.2 E.U./dL (<1 E.U./dL) 09/16/18 20:32 Ur Leukocyte Esterase Negative Merari/uL (NEGATIVE) 09/16/18 20:32 Attending/Attestation - Attestation I have personally seen and examined this patient.: Yes I have fully participated in the care of the patient.: Yes I have reviewed all pertinent clinical information, including history, physical exam and plan: Yes Notes (Text): 09/17/18 14:31 57 year old female with past medical history of hypertension, dyslipidemia, diabetes and asthma who presented with complaints of chest pain. Serial cardiac enzymes were negative and ACS was ruled out. Chest pain resolved. She was seen by cardiology who recommended outpatient stress test secondary to her multiple risk factors. Patient is discharged home to follow up with pmd. Follow up with cardiology for outpatient stress test. Mario Earl MD Hospitalist.
--- NOTE | 2018-09-17 13:36 | CARD ---
APPROVED REPORT Date of service: 09/17/2018 EKG Measurement Heart [id number] <Conclusion> Sinus bradycardia Incomplete right bundle branch block Abnormal ECG
== END 2018-09-17 14:43 | disposition home or self-care (01) ==
LOC: ED 19:27 → ERH 22:44 → 2RNO 09-17 00:11
PROVIDERS: ADMIT Internal Medicine; ATTEND Internal Medicine
DX: I20.9 Angina pectoris, unspecified (principal); M54.9 Dorsalgia, unspecified; E11.9 Type 2 diabetes mellitus without complications; E78.5 Hyperlipidemia, unspecified; F17.200 Nicotine dependence, unspecified, uncomplicated; I10 Essential (primary) hypertension; I45.10 Unspecified right bundle-branch block; J45.909 Unspecified asthma, uncomplicated; K21.9 Gastro-esophageal reflux disease without esophagitis; Z98.51 Tubal ligation status; Z98.891 History of uterine scar from previous surgery; Z88.6 Allergy status to analgesic agent; Z88.0 Allergy status to penicillin; Z98.84 Bariatric surgery status
CPT/HCPCS: 36415; 71045; 80053; 80061; 81003; 81025; 82550; 82948; 83036; 83615; 83690; 83880; 84439; 84443; 84484; 85025; 85378; 93005; 93306; 96374; 96376; 99285; G0378; J1885

== ENCOUNTER 2018-10-24 09:37 | Emergency (ER) | payer MEDICAID ==
[2018-10-24 09:37] VITALS: BMI 26.1
[2018-10-24 09:54] VITALS: TEMP 97.7
[2018-10-24] MEDS ORDERED: Oxycodone/Acetaminophen 5/325 mg Tab PO STA (10:17)
[2018-10-24 10:58] VITALS: BP 109/69; PULSE 60; RESP 15; O2SAT 98
--- NOTE | 2018-10-24 11:32 | ED PDOC ---
Arrival/HPI - General Chief Complaint: Rib Injury Time Seen by Provider: 10/24/18 09:40 Historian: Patient - History of Present Illness Narrative History of Present Illness (Text): 10/24/18 11:17 58yr old female presents today with right sided rib pain x 6 days. pt states that she tripped over a bag in her room 6 days ago and fell hitting the right side of her ribs into the nightstand. pt denies abdominal pain. no nausea/vomit ing/diarrhea/constipation. pt states her appetite is normal. Patient denies headache dizziness or weakness. Patient states she has been taking Naprosyn at home with minimal pain relief. Patient denies shortness of breath. Past Medical History - Provider Review Nursing Documentation Reviewed: Yes - Travel History Have you recently traveled outside [place] w/in the past 3 mons?: No - Infectious Disease Hx of Infectious Diseases: None - Tetanus Immunization Tetanus Immunization: Unknown - Cardiac Hx Cardiac Disorders: Yes Hx Hypertension: Yes - Pulmonary Hx Respiratory Disorders: Yes Hx Asthma: Yes - Neurological Hx Neurological Disorder: No - HEENT Hx HEENT Disorder: No - Renal Hx Renal Disorder: No - Endocrine/Metabolic Hx Endocrine Disorders: Yes Hx Diabetes Mellitus Type 2: Yes - Hematological/Oncological Hx Blood Disorders: No - Integumentary Hx Dermatological Disorder: No - Musculoskeletal/Rheumatological Hx Musculoskeletal Disorders: No Hx Falls: No - Gastrointestinal Hx Gastrointestinal Disorders: Yes Hx Gastroesophageal Reflux: Yes - Genitourinary/Gynecological Hx Genitourinary Disorders: No - Psychiatric Hx Psychophysiologic Disorder: No Hx Substance Use: No - Surgical History Hx Section: Yes Hx Tubal Ligation: Yes - Anesthesia Hx Anesthesia: Yes Hx Anesthesia Reactions: No Hx Malignant Hyperthermia: No - Suicidal Assessment Feels Threatened In Home Enviroment: No Family/Social History - Physician Review Nursing Documentation Reviewed: Yes Family/Social History: Unknown Family HX Smoking Status: Never Smoked Hx Alcohol Use: Yes Frequency of alcohol use: Socially Hx Substance Use: No Hx Substance Use Treatment: No Allergies/Home Meds Allergies/Adverse Reactions: Allergies aspirin Allergy (Verified 09/16/18 19:32) ITCHING Penicillins Allergy (Verified 09/16/18 19:32) ITCHING Home Medications: Home Meds Medication Instructions Recorded Confirmed Atorvastatin [Lipitor] 40 mg PO DIN 05/08/16 09/17/18 Metoprolol Tartrate [Lopressor] 25 mg PO DAILY 05/08/16 09/17/18 Omeprazole 40 mg PO DAILY 05/08/16 09/17/18 Nabumetone [Relafen] 1 tab PO DAILY 09/16/18 09/16/18 Fluticasone Propion/Salmeterol 1 each IH DAILY 09/17/18 09/17/18 [Airduo Resp Fluticasone-Salmeterol 55-14] Review of Systems - Review of Systems Constitutional: absent: Fatigue, Fevers Respiratory: absent: SOB, Cough Cardiovascular: Other (right sided rib pain). absent: Chest Pain, Palpitations Gastrointestinal: absent: Abdominal Pain, Constipation, Diarrhea, Nausea, Vomiting Genitourinary Female: absent: Dysuria, Frequency, Hematuria Musculoskeletal: absent: Back Pain, Neck Pain Skin: absent: Rash, Pruritis Neurological: absent: Headache, Dizziness Psychiatric: absent: Anxiety, Depression, Suicidal Ideation Physical Exam Vital Signs Reviewed: Yes Vital Signs Temp Pulse Resp BP Pulse Ox 10/24/18 10:57 60 15 109/69 98 10/24/18 09:37 97.7 F 68 18 107/51 L 97 Temperature: Afebrile Blood Pressure: Normal Pulse: Regular Respiratory Rate: Normal Appearance: Positive for: Well-Appearing, Non-Toxic, Comfortable Pain Distress: None Mental Status: Positive for: Alert and Oriented X 3 - Systems Exam Head: Present: Atraumatic Mouth: Present: Moist Mucous Membranes Neck: Present: Normal Range of Motion Respiratory/Chest: Present: Clear to Auscultation, Good Air Exchange, Tender to Palpation (+ ttp over the right lateral ribs. no step offs or crepitis. + ecchymosis noted to the mid lateral right sided rib; no ecchymosis. ). No: Respiratory Distress, Accessory Muscle Use Cardiovascular: Present: Regular Rate and Rhythm, Normal S1, S2. No: Murmurs Abdomen: Present: Other (no ecchymosis). No: Tenderness, Distention, Peritoneal Signs, Rebound, Guarding Back: Present: Normal Inspection. No: Midline Tenderness, Paraspinal Tenderness Upper Extremity: Present: Normal ROM Lower Extremity: Present: Normal ROM Neurological: Present: GCS=15, Speech Normal Skin: Present: Warm, Dry, Normal Color. No: Rashes Psychiatric: Present: Alert, Oriented x 3 Medical Decision Making ED Course and Treatment: 10/24/18 11:35 Patient is nontoxic well appearing in no distress with stable vital signs. Lungs are clear to auscultation bilaterally. pt with right rib pain s/p fall 6 days ago. PA chest: No fracture and no pneumothorax no effusion. ribs: No fracture percocet given for pain Patient reassessment: Patient with slight improvement of pain. Lungs are clear bilaterally, Abdomen is soft nontender nondistended. pt given incentive spirometer and trained on how to use it. i discussed all results in depth with patient; i advised possibility of fracture although xrays are negative. Advised patient to follow up with the primary care physician within the next 2 days apply ice to the ribs frequently. percocet every 6 hours as needed for moderate to severe pain. Advised returning if symptoms worsen persist or if new symptoms develop Patient verbalizes understanding of discharge instructions and need for immediate followup. All aspects of this case were discussed the attending of record. Impression: Contusion ribs Percocet; one tablet every 6 hours as needed for moderate to severe pain: May cause drowsiness Apply ice frequently Followup with primary care physician within the next 2 days Followup with the orthopedist within the next 2 days Return if symptoms worsen persist or if new symptoms develop - RAD Interpretation Radiology Orders: 10/24/18 10:17 RIBS RIGHT & PA CHEST [RAD] Stat - Medication Orders Current Medication Orders: Discontinued Medications Oxycodone/Acetaminophen (Percocet 5/325 Mg Tab) 1 tab PO STAT STA Stop: 10/24/18 10:18 Last Admin: 10/24/18 10:26 Dose: 1 tab [facility] Pain Assessment Document 10/24/18 10:26 CD (Rec: 10/24/18 10:27 CD [id number]) Pain Reassessment Is this a pain reassessment? No Sleep Is patient sleeping during reassessment? No Presence of Pain Presence of Pain Yes Pain Scale Used Protocol: PSCALES Pain Scale Used Numeric Location Left, Right or Bilateral Right Upper or Lower Upper Pain Location Body Site Back Description Description Intermittent Intensity of Pain at present 7 Aggravating Factors Changing Position Alleviating Factors/Management Inactivity Techniques Disposition/Present on Arrival - Present on Arrival Any Indicators Present on Arrival: No History of DVT/PE: No History of Uncontrolled Diabetes: No Urinary Catheter: No History of Decub. Ulcer: No History Surgical Site Infection Following: None - Disposition Have Diagnosis and Disposition been Completed?: Yes Diagnosis: Rib contusion Disposition: HOME/ ROUTINE Disposition Time: 11:20 Patient Plan: Discharge Condition: GOOD Discharge Instructions (ExitCare): Bruised Rib (DC), Contusion (DC) Additional Instructions: Percocet; one tablet every 6 hours as needed for moderate to severe pain: May cause drowsiness Apply ice frequently Followup with primary care physician within the next 2 days Followup with the orthopedist within the next 2 days Return if symptoms worsen persist or if new symptoms develop USE incentive spirometer frequently as directed. The patient required opioid analgesia and was counseled on side effects, p otential risk of addiction, recommendation to minimize use, and available alternatives to opiates. Prescriptions: oxyCODONE/Acetaminophen [Percocet 5/325 mg Tab] 1 tab PO Q6H PRN #8 tab PRN Reason: moderate to severe pain Referrals: Ro Viramontes MD [Medical Doctor] - Follow up with primary Alice Etienne MD [Staff Provider] - Follow up with primary [facility] [Outside] - Follow up with primary Forms: [employer] (Spanish), WORK NOTE
--- NOTE | 2018-10-24 11:44 | RAD ---
Date of service: 10/24/2018 PROCEDURE: Radiographs of the Chest and Right Ribs. HISTORY: fall, right lateral rib pain since friday COMPARISON: None available. TECHNIQUE: Frontal radiograph of the chest and multiple oblique radiographs of the right ribs were obtained. 4 views obtained. FINDINGS: RIGHT RIBS: No fracture or focal lesion visualized. LUNGS: Clear. PLEURA: No pneumothorax or pleural fluid. CARDIOVASCULAR: Normal cardiac size. No pulmonary vascular congestion. No aortic atherosclerotic calcification present OTHER FINDINGS: None. IMPRESSION: Unremarkable radiographs of the chest and right ribs. No right rib fracture.
== END 2018-10-24 12:37 | disposition home or self-care (01) ==
LOC: ED 09:37
DX: S20.219A Contusion of unspecified front wall of thorax, initial encounter (principal); W01.190A Fall on same level from slipping, tripping and stumbling with subsequent striking against furniture, initial encounter; E11.9 Type 2 diabetes mellitus without complications; I10 Essential (primary) hypertension

== ENCOUNTER 2018-11-05 08:18 | Emergency (ER) | payer MEDICAID ==
[2018-11-05 08:19] VITALS: BMI 26.1
[2018-11-05 08:30] VITALS: TEMP 98.7
[2018-11-05] MEDS ORDERED: Lidocaine 5% Patch TD STA (08:41)
--- NOTE | 2018-11-05 08:42 | ED PDOC ---
Arrival/HPI - General Chief Complaint: Rib Injury Time Seen by Provider: 11/05/18 08:32 Historian: Patient - History of Present Illness Narrative History of Present Illness (Text): 11/05/18 08:41 58 year old female, whose past medical history includes HTN, HLD, asthma, presents to the emergency department complaining of continuous right-sided ribcage pain s/p trip and fall 18 days ago. Patient reports she tripped fell hitting her right side of the ribs into the nightstand 18 days ago. Patient was evaluated and discharged from the ER 12 days ago with percocet, but was told if the pain continues to return to the ER for further evaluation. She reports the pain has not worsen, but pain remains with deep inspirations. Patient denies any fever, chills, cough, chest pain, shortness of breath, nausea, vomiting, diarrhea, urinary symptoms, back pain, neck pain, headache, dizziness, or any other complaints. Time/Duration: Other (18 days) Symptom Onset: Gradual Symptom Course: Unchanged Activities at Onset: Light Context: Home Past Medical History - Provider Review Nursing Documentation Reviewed: Yes Primary Care Provider: Elaine Ingram V - Infectious Disease Hx of Infectious Diseases: None - Tetanus Immunization Tetanus Immunization: Unknown - Reproductive Menopause: Yes - Cardiac Hx Cardiac Disorders: Yes Hx Hypertension: Yes - Pulmonary Hx Respiratory Disorders: Yes Hx Asthma: Yes - Neurological Hx Neurological Disorder: No - HEENT Hx HEENT Disorder: No - Renal Hx Renal Disorder: No - Endocrine/Metabolic Hx Endocrine Disorders: Yes Hx Diabetes Mellitus Type 2: Yes - Hematological/Oncological Hx Blood Disorders: No - Integumentary Hx Dermatological Disorder: No - Musculoskeletal/Rheumatological Hx Musculoskeletal Disorders: No Hx Falls: No - Gastrointestinal Hx Gastrointestinal Disorders: Yes Hx Gastroesophageal Reflux: Yes - Genitourinary/Gynecological Hx Genitourinary Disorders: No - Psychiatric Hx Psychophysiologic Disorder: No Hx Substance Use: No - Surgical History Hx Section: Yes Hx Tubal Ligation: Yes - Anesthesia Hx Anesthesia: Yes Hx Anesthesia Reactions: No Hx Malignant Hyperthermia: No - Suicidal Assessment Feels Threatened In Home Enviroment: No Family/Social History - Physician Review Nursing Documentation Reviewed: Yes Family/Social History: No Known Family HX Smoking Status: Never Smoked Hx Alcohol Use: Yes Frequency of alcohol use: Socially Hx Substance Use: No Hx Substance Use Treatment: No Allergies/Home Meds Allergies/Adverse Reactions: Allergies aspirin Allergy (Verified 11/05/18 08:30) ITCHING Penicillins Allergy (Verified 11/05/18 08:30) ITCHING Home Medications: Home Meds Medication Instructions Recorded Confirmed Atorvastatin [Lipitor] 40 mg PO DIN 05/08/16 09/17/18 Metoprolol Tartrate [Lopressor] 25 mg PO DAILY 05/08/16 09/17/18 Omeprazole 40 mg PO DAILY 05/08/16 09/17/18 Nabumetone [Relafen] 1 tab PO DAILY 09/16/18 09/16/18 Fluticasone Propion/Salmeterol 1 each IH DAILY 09/17/18 09/17/18 [Airduo Resp Fluticasone-Salmeterol 55-14] Review of Systems - Physician Review All systems were reviewed & negative as marked: Yes - Review of Systems Constitutional: absent: Fevers, Other (chills) Respiratory: absent: SOB, Cough Cardiovascular: Other (right ribcage pain). absent: Chest Pain Gastrointestinal: absent: Diarrhea, Nausea, Vomiting Genitourinary Female: absent: Dysuria, Frequency, Hematuria Musculoskeletal: absent: Back Pain, Neck Pain Neurological: absent: Headache, Dizziness Physical Exam - Physical Exam Narrative Physical Exam (Text): Gen: VS reviewed, alert, well developed, well nourished, nontoxic, mild distress. ENT: normal pharynx. Eye: EOMI, PERRL. Neck: no JVD, supple, no adenopathy. CV: regular rate, regular rhythm, no rubs, no murmur, no gallops, S1, S2, pulses equal and strong. Pulm/Chest: Mild to moderate tenderness to the right lateral and anterior ribcage at about the level of the nipple. No bruising, deformity, or rash. no distress, clear to auscultation, no wheeze, no rhonchi, breath sounds equal, no rales. Abd: soft, nontender, no guarding, no rebound, no rigidity, normal bowel sounds. Ext: no edema. Skin: good color, no rash, no cyanosis. Psych: responds appropriately to questions, normal affect. Neuro: oriented x 3, CN2-12 intact grossly, motor intact, sensation intact. Vital Signs Reviewed: Yes Vital Signs Temp Pulse Resp BP Pulse Ox 05/30/19 08:24 98.7 F 61 18 104/67 100 Temperature: Afebrile Blood Pressure: Normal Pulse: Regular Respiratory Rate: Normal Medical Decision Making ED Course and Treatment: 11/05/18 08:41 Impression: 58 year old female presents complaining of continuous right-sided ribcage pain s/p trip and fall hitting her right side of the ribs into the nightstand 18 days ago. Plan: -- CT Chest w/o contrast -- Labs -- Lidoderm, Tylenol -- Reassess and disposition Prior Visits: Notes and results from previous visits were reviewed. Progress Notes: - Lab Interpretations I have reviewed the lab results: Yes - RAD Interpretation Narrative RAD Interpretations (Text): PROCEDURE: CT Chest with contrast Dictator : Jessee Salazar MD Report Date : 11/05/2018 11:29:59 IMPRESSION: No evidence of thoracic visceral injury. No hemothorax/pneumothorax. No rib fracture identified. No pulmonary contusion. Status post gastric bypass surgery. Dx Board Operator: Radiologist - Scribe Statement The provider has reviewed the documentation as recorded by the Loly German Provider Scribe Attestation: All medical record entries made by the Scribe were at my direction and personally dictated by me. I have reviewed the chart and agree that the record accurately reflects my personal performance of the history, physical exam, medical decision making, and the department course for this patient. I have also personally directed, reviewed, and agree with the discharge instructions and disposition. Disposition/Present on Arrival - Present on Arrival Any Indicators Present on Arrival: No History of DVT/PE: No History of Uncontrolled Diabetes: No Urinary Catheter: No History of Decub. Ulcer: No History Surgical Site Infection Following: None - Disposition Have Diagnosis and Disposition been Completed?: Yes Diagnosis: Chest wall contusion Disposition: HOME/ ROUTINE Disposition Time: 12:06 Patient Plan: Discharge Condition: STABLE Discharge Instructions (ExitCare): Bruised Rib (DC) Prescriptions: Lidocaine 5% [Lidoderm] 1 ea TD Q12H #14 patch Forms: [employer] ([place]), WORK NOTE
[2018-11-05 09:36] LABS: BLOOD UREA NITROGEN 16 mg/dL (7-21); CALCIUM 9.1 mg/dL (8.4-10.5); GFR NON-AFRICAN AMERICAN > 60
[2018-11-05 10:50] VITALS: RESP 17
--- NOTE | 2018-11-05 11:33 | CT ---
Date of service: 11/05/2018 PROCEDURE: CT Chest with contrast HISTORY: trauma COMPARISON: Not available TECHNIQUE: Contiguous axial images were obtained through the chest with intravenous contrast enhancement. Sagittal and coronal reconstructions were performed. IV contrast: 100 mL Omnipaque 300 Radiation dose: Total exam DLP = 376.4 mGy-cm. This CT exam was performed using one or more of the following dose reduction techniques: Automated exposure control, adjustment of the mA and/or kV according to patient size, and/or use of iterative reconstruction technique. FINDINGS: LUNGS: No pulmonary infiltrate/contusion. No pulmonary mass. MEDIASTINUM: Unremarkable thoracic aorta. No aneurysm or dissection. Normal sized heart. Main pulmonary artery unremarkable. No vascular congestion. No lymphadenopathy. There is atherosclerotic calcification of the thoracic aorta. PLEURA: No pneumothorax/hemothorax. BONES: No fracture. No destructive lesion. UPPER ABDOMEN: Status post gastric bypass surgery. OTHER FINDINGS: None. IMPRESSION: No evidence of thoracic visceral injury. No hemothorax/pneumothorax. No rib fracture identified. No pulmonary contusion. Status post gastric bypass surgery.
[2018-11-05 12:39] VITALS: BP 109/69; PULSE 64; O2SAT 99
== END 2018-11-05 12:37 | disposition home or self-care (01) ==
LOC: ED 08:18
DX: S20.211A Contusion of right front wall of thorax, initial encounter (principal); W01.198A Fall on same level from slipping, tripping and stumbling with subsequent striking against other object, initial encounter; I10 Essential (primary) hypertension; E11.9 Type 2 diabetes mellitus without complications
CPT/HCPCS: 71260; 80048; 99284; Q9967